=== PATIENT | male | born 1955 | race Caucasian/White ===

== ENCOUNTER 2018-08-17 08:00 | Outpatient (CLI) | payer MEDICARE, OTHER ==
[2018-08-17 18:43] LABS: BASOPHILS % (AUTO) 0.8 %; EOSINOPHILS # (AUTO) 0.1 10^3/uL (0.0-0.7); EOSINOPHILS % (AUTO) 1.2 %; HGB - HEMOGLOBIN 16.1 g/dL (14.0-18.0); LYMPHOCYTES # (AUTO) 1.5 10^3/uL (1.5-3.5); LYMPHOCYTES % (AUTO) 31.6 %; MEAN CORPUSCULAR HEMOGLOBIN 29.9 pg (27.0-31.0); MEAN CORPUSCULAR VOLUME 90.7 fL (80.0-94.0); MEAN PLATELET VOLUME 8.6 fL (7.4-11.4); MONOCYTES # (AUTO) 0.5 10^3/uL (0.0-1.0); MONOCYTES % (AUTO) 9.6 %; NEUTROPHILS # (AUTO) 2.7 10^3/uL (1.5-6.6); NEUTROPHILS % (AUTO) 56.8 %; PLT - PLATELET COUNT 274 10^3/uL (130-450); RED BLOOD COUNT 5.38 10^6/uL (4.70-6.10); RED CELL DISTRIBUTION WIDTH 13.3 % (12.0-15.0); WHITE BLOOD COUNT 4.7 x10^3/uL (4.8-10.8)
[2018-08-17 19:21] LABS: ALBUMIN 4.1 g/dL (3.2-5.5); ALBUMIN/GLOBULIN RATIO 1.5 (1.0-2.2); ALKALINE PHOSPHATASE 79 IU/L (42-121); ALT ALANINE AMINOTRANSFERASE 26 IU/L (10-60); AST ASPARTATE AMINOTRANSFERASE 23 IU/L (10-42); BILIRUBIN,TOTAL 2.4 mg/dL (0.2-1.0); BUN - BLOOD UREA NITROGEN 18 mg/dL (6-20); CALCIUM 8.9 mg/dL (8.5-10.3); CARBON DIOXIDE - CO2 30 mmol/L (21-32); CHLORIDE 101 mmol/L (101-111); CHOL/HDL RATIO 3.5 (<5.0); CHOLESTEROL 214 mg/dL; GFR - MDRD 75 (>89); GLUCOSE 99 mg/dL (70-100); HDL CHOLESTEROL 62 mg/dL; LDL CHOLESTEROL,CALCULATED 117 mg/dL; LDL/HDL RATIO 1.9 (<3.6); SODIUM 138 mmol/L (135-145); TOTAL PROTEIN 6.8 g/dL (6.7-8.2); VLDL CHOLESTEROL 35 mg/dL
== END 2018-08-17 23:59 | disposition home or self-care (01) ==
LOC: LAB.WCP 08:00
PROVIDERS: ATTEND Physician Assistant
DX: I10 Essential (primary) hypertension (principal); E78.5 Hyperlipidemia, unspecified; Z12.5 Encounter for screening for malignant neoplasm of prostate
CPT/HCPCS: 36415; 80053; 80061; 83721; 84153; 85025

== ENCOUNTER 2018-08-25 05:18 | Outpatient (CLI) | payer MEDICARE, OTHER ==
--- NOTE | 2018-08-25 06:29 | Ultrasound Report ---
Reason: LIVER LESION Procedure Date: 08/25/2018 Accession Number: [id number] / [id number] Procedure: US - Abdomen Limited CPT Code: FULL RESULT: EXAM: ABDOMEN ULTRASOUND LIMITED, RUQ EXAM DATE: 08/25/2018 05:50 AM. CLINICAL HISTORY: LIVER LESION. COMPARISON: None. TECHNIQUE: Real-time scanning was performed with static images obtained. FINDINGS: Liver: Increased echogenicity of the liver compatible with fatty infiltration. 17.3 cm. Main portal vein flow: Hepatopetal. In the left lobe of the liver there is a solid, hypoechoic lesion with vascularity measuring 1.3 x 1.2 x 1.4 cm. Gallbladder: Normal. No stones, wall thickening, or sonographic Hernández's sign. Biliary System: CBD measures 3 mm. No intrahepatic or extrahepatic ductal dilatation. Other: There is a nonobstructing calculus in the lower pole of the right kidney. Right kidney measures 10.6 cm. IMPRESSION: 1. Fatty liver. 2. Hypoechoic, solid, vascular lesion in the left lobe of the liver. Indeterminate. This may need follow-up imaging. 3. Nonobstructing calculus lower pole of the right kidney. RADIA
== END 2018-08-25 05:19 | disposition home or self-care (01) ==
LOC: DI 05:18
PROVIDERS: ATTEND Physician Assistant
DX: K76.9 Liver disease, unspecified (principal); K76.0 Fatty (change of) liver, not elsewhere classified; N20.0 Calculus of kidney
CPT/HCPCS: 76705

== ENCOUNTER 2018-09-06 07:10 | Outpatient (CLI) | payer MEDICARE, OTHER ==
[2018-09-06] MEDS ORDERED: IOVERSOL 320 100 ML VIAL IVP ONE ×2 (07:50→09:40)
--- NOTE | 2018-09-06 10:14 | CT Report ---
Reason: LIVER LESION Procedure Date: 09/06/2018 Accession Number: [id number] / [id number] Procedure: CT - ABDOMEN/PELVIS W/WO CPT Code: FULL RESULT: EXAM: CT ABDOMEN WITHOUT AND WITH CONTRAST EXAM DATE: 09/06/2018 08:00 AM. HISTORY: Liver lesion. COMPARISON: ABDOMEN LIMITED 08/25/2018 5:24 AM. TECHNIQUE: Routine helical CT imaging was performed through the abdomen before and after administration of IV contrast: 100 mL Optiray 320. Enteric contrast: No. Reconstruction: Coronal and sagittal. Multiple phases were obtained as per liver mass protocol. In accordance with CT protocol optimization, one or more of the following dose reduction techniques were utilized for this exam: automated exposure control, adjustment of mA and/or KV based on patient size, or use of iterative reconstructive technique. FINDINGS: Lung Bases: Partially calcified 1.2 x 1.5 centimeter left lower lobe nodule on image 13, benign calcification pattern. Liver: The approximately 1.7 x 1.2 cm subcapsular segment 2 lesion demonstrates predominantly peripheral heterogeneous opacification on the arterial phase, remains hyperdense on the portal venous phase with progressive filling and enhancement pattern following the vascular phase maintaining blood pool intensity on the 7 minute delay images. There is no washout or pseudocapsule. Additional hypodense segment 7/8 lesion, measuring 1.2 cm on image 17 demonstrates arterial enhancement, subtle washout and questionable pseudocapsule. Gallbladder/Bile Ducts: Unremarkable. Spleen: Mild splenomegaly. Pancreas: Normal. No masses or ductal obstruction. Adrenal Glands: Normal. Kidneys: Bilateral nonobstructing renal calculi, up to 6 mm on the right and up to 7 mm on the left. No obstruction. Peritoneal Cavity/Bowel: Sigmoid diverticulosis without diverticulitis. No free fluid, free air or adenopathy. No masses or acute inflammatory process. Vasculature: No aneurysms or other significant abnormality. Bones: No significant abnormality. Other: None. IMPRESSION: Indeterminate segment 2 hepatic lesion, imaging appearance is suggestive of a flash-filling hemangioma though distortion of the liver capsule is less typical. Newly identified 1.2 cm lesion at the border of segments 7/8, suspicious for malignancy. Recommendation: MRI abdomen liver mass protocol with and without intravenous contrast. KATHRIN The call report notification system was initiated by Dr. Braulio Corcoran at 10:08 AM on 09/06/2018. ADDENDUM: 09/06/18 10:17 The above call report findings were discussed with Addis Ferris by Dr. Braulio Corcoran at 10:17 AM on 09/06/2018.
== END 2018-09-06 07:11 | disposition home or self-care (01) ==
LOC: DI 07:10
PROVIDERS: ATTEND Physician Assistant
DX: K76.9 Liver disease, unspecified (principal)
CPT/HCPCS: 74178; Q9967

== ENCOUNTER 2018-09-07 15:20 | Outpatient (CLI) | payer OTHER, MEDICARE ==
[2018-09-07] MEDS ORDERED: GADOBUTROL 10 MMOL/10 ML VIAL ONE (15:53)
[2018-09-07] MEDS ORDERED: GADOBUTROL 10 MMOL/10 ML VIAL IVP ONE ×2 (17:05)
--- NOTE | 2018-09-07 17:39 | MRI Report ---
Reason: LIVER LESION Procedure Date: 09/07/2018 Accession Number: [id number] / [id number] Procedure: MRI - Abdomen W/WO CPT Code: FULL RESULT: EXAM: MR ABDOMEN WITH AND WITHOUT CONTRAST (MR LIVER) EXAM DATE: 09/07/2018 05:02 PM. CLINICAL HISTORY: Liver lesion seen on prior CT. COMPARISON: CT abdomen/pelvis without and with contrast 09/06/2018 8:10 AM. TECHNIQUE: Multiplanar breath-hold T1, T2, and DWI sequences obtained through the abdomen on an MR scanner. Images obtained before and after administration of 9 mL Gadavist intravenous contrast. Multiphase postcontrast images obtained of the liver and abdomen. FINDINGS: Lung Bases: No acute findings. Liver: Bright T2-hyperintense mass seen in the lateral segment left hepatic lobe which has progressive enhancement and persistent enhancement hyperdense to the adjacent liver on the delayed scan consistent with a hemangioma. This measures 1.3 x 1.7 cm. Gallbladder: Unremarkable. Bile Ducts: Unremarkable. Pancreas: Unremarkable. Spleen: Unremarkable. Adrenals: Unremarkable. Kidneys: Unremarkable. Bowel: Mild scattered colonic diverticula noted. No acute findings. IMPRESSION: 1. Liver hemangioma in the lateral segment left hepatic lobe. No more follow-up is required. 2. Mild scattered colonic diverticula noted. RADIA
== END 2018-09-07 15:21 | disposition home or self-care (01) ==
LOC: DI 15:20
PROVIDERS: ATTEND Nurse Practitioner
DX: D18.03 Hemangioma of intra-abdominal structures (principal); K57.30 Diverticulosis of large intestine without perforation or abscess without bleeding
CPT/HCPCS: 74183; A9585

== ENCOUNTER 2019-01-03 19:40 | Emergency (ER) | payer MEDICARE, OTHER ==
[2019-01-03 20:02] LABS: BILIRUBIN,URINE NEGATIVE (NEGATIVE); GLUCOSE, URINE (UA) NEGATIVE (NEGATIVE); KETONES,URINE (UA) NEGATIVE (NEGATIVE); LEUKOCYTE ESTERASE, URINE NEGATIVE (NEGATIVE); NITRITE,URINE NEGATIVE (NEGATIVE); OCCULT BLOOD,URINE TRACE-LYSE (NEGATIVE); PROTEIN,URINE NEGATIVE (NEGATIVE); UROBILINOGEN,URINE 1 (NORMAL) E.U./dL (NORMAL)
[2019-01-03 20:08] LABS: CLARITY,URINE CLEAR (CLEAR)
--- NOTE | 2019-01-03 21:03 | ED Physician Documentation ---
PD HPI MALE - Stated complaint Stated Complaint: MALE /L TESTICULAR PX - Chief complaint Chief Complaint: Abd Pain - History obtained from History obtained from: Patient - History of Present Illness Timing - onset: Today Timing - duration: Hours (12) Timing - details: Abrupt onset Pain level now: 3 Associated symptoms: Testiclar pain, Scrotal swelling. No: Dysuria, Urinary frequency, Hematuria, Discharge, Genital sore / lesion, Abdominal pain PD HPI MALE CONTRIB FACTORS: Sexually active. No: Exposed to STD (He is in a monogamous relationship) Similar symptoms before: No diagnosis Recently seen: Not recently seen - Additional information Additional information: This 63-year-old man who presents with his complains that he was out walking the dog this morning around 9 AM when he suddenly got this sharp pain in his left testicle and groin region. Left testicle began to get swollen and had a throbbing type pain that he noticed was better if he got up and moved around so he went to see his primary care provider this afternoon but they did not have any appointments. He explained everything to the nursing staff and then talk with the provider they called him later and told him to come to the emergency department. Pain was isolated to the left but now it is may be migrating to the right. He feels that his testicle is swollen to the size of a basketball. Pain is currently a 3 out of 10. He did put a jockstrap on earlier today and that seemed to relieve the pain a little bit he has not taken any medications for it. Denies any dysuria or hematuria. No nausea or vomiting. No back pain and no fever. Of note about a month ago the patient started lifting weights again and he has had some brief episodes of pain in the left testicle several times since then. Review of Systems Constitutional: denies: Fever GI: denies: Abdominal Pain, Nausea, Vomiting : reports: Testicular pain. denies: Dysuria, Frequency, Hematuria, Discharge Skin: denies: Rash Musculoskeletal: denies: Back pain PD PAST MEDICAL HISTORY - Present Medications Home Medications: Ambulatory Orders Medication Instructions Recorded Confirmed No Known Home Medications 01/03/19 01/03/19 - Allergies Allergies/Adverse Reactions: Allergies Allergy/AdvReac Type Severity Reaction Status Date / Time No Known Drug Allergies Allergy Verified 01/03/19 19:46 PD ED PE NORMAL - Vitals Vital signs reviewed: Yes - General General: Alert and oriented X 3, No acute distress, Well developed/nourished, Other (He is sitting on the exam table with his legs spread apart) - HEENT HEENT: Moist mucous membranes - Cardiac Cardiac: RRR - Respiratory Respiratory: No respiratory distress - Abdomen Abdomen: Normal bowel sounds, Soft, Non tender, Non distended - Male 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 No erythema to the scrotum. There is tenderness with palpation along the epididymis. No testicular mass. No hernia.) - Extremities Extremities: No edema - Neuro Neuro: Alert and oriented X 3, Other (No gross neurological deficits.) - Psych Psych: Normal mood, Normal affect Results - Vitals Vitals: Oxygen O2 Source Room air - Labs Labs: Laboratory Tests 01/03/19 19:50 Urine Color YELLOW Urine Clarity CLEAR Urine pH 6.0 Ur Specific [place] 1.015 Urine Protein NEGATIVE Urine Glucose (UA) NEGATIVE Urine Ketones NEGATIVE Urine Occult Blood TRACE-LYSE Urine Nitrite NEGATIVE Urine Bilirubin NEGATIVE Urine Urobilinogen 1 (NORMAL) Ur Leukocyte Esterase NEGATIVE Ur Microscopic Review NOT INDICATED Urine Culture Comments NOT INDICATED - Rads (name of study) ultrasound testicle Radiology: See rad report PD MEDICAL DECISION MAKING - ED course Complexity details: reviewed results, re-evaluated patient, d/w patient ED course: Patient initially declined any Toradol or ibuprofen. Ultrasound was obtained of the left testicle that showed no evidence of orchitis or mass. He does have bilateral varicoceles and in left epididymal cyst. After hearing the results the ultrasound patient did agree to take some ibuprofen. Think he probably has some epididymitis that could be related to the recent starting of weightlifting. Recommended that he wear white briefs for support or the jockstrap intake and anti-inflammatory. He is adamant that he has no risk of sexually transmitted disease in the testicle itself does not appear to be tender so I did not feel that antibiotics were warranted at this point in time. Departure - Departure Disposition: 01 Home, Self Care Clinical Impression: Epididymitis, Testicular pain, left Condition: Good Instructions: ED Epididymitis, ED Testicular Pain [facility] Follow-Up: Bre Alicia PA [Primary Care Provider] - Comments: Take ibuprofen 3 to 4 tablets every 8 hours with food [id number]. Wear tighty whiteys or the jockstrap for support. Avoid any strenuous lifting for at least the next 2 weeks. I would recommend recheck with your primary care provider and referral for your out logical evaluation particularly if the pain does not improve. Discharge Date/Time: 01/03/19 23:50
--- NOTE | 2019-01-03 22:52 | Ultrasound Report ---
Reason: left testicle pain Procedure Date: 01/03/2019 Accession Number: [id number] / [id number] Procedure: US - Testicle w/Doppler CPT Code: FULL RESULT: EXAM: SCROTAL ULTRASOUND EXAM DATE: 01/03/2019 10:35 PM. CLINICAL HISTORY: Left testicle pain. COMPARISON: None. TECHNIQUE: Real-time scanning was performed with static images obtained. Color-flow images were utilized. FINDINGS: Right: Testis: 4.2 x 3.1 x 2.3 cm. Normal size and echotexture. No mass, calcification, or abnormal blood flow. Epididymis: 1.3 x 1.3 x 0.6 cm. Incidental cyst, measuring 7 mm. Normal flow. Hydrocele: Small Varicocele: Yes Left: Testis: 3.8 x 2.5 x 2.0 cm. Normal size and echotexture. No mass, calcification, or abnormal blood flow. Epididymis: 1.2 x 1.2 x 0.8 cm. Incidental cysts, measuring up to 1.1 cm. Normal flow. Hydrocele: None. Varicocele: Yes IMPRESSION: Bilateral varicoceles. Small right hydrocele. Incidental epididymal cysts. No evidence of testicular torsion or orchitis. RADIA
[2019-01-03] MEDS ORDERED: IBUPROFEN 600 MG TABLET PO STA (23:28)
[2019-01-03 23:35] VITALS: BP 169/109
== END 2019-01-03 23:50 | disposition home or self-care (01) ==
LOC: ED 19:40
DX: N45.1 Epididymitis (principal); N50.3 Cyst of epididymis
CPT/HCPCS: 76870; 81003; 93975; 99284; A9270; 81001; 87086

== ENCOUNTER 2019-01-15 19:30 | Outpatient (CLI) | payer MEDICARE, OTHER ==
--- NOTE | 2019-01-16 01:36 | Ultrasound Report ---
Reason: GROIN PAIN, LEFT Procedure Date: 01/15/2019 Accession Number: [id number] / [id number] Procedure: US - Pelvic Limited or F/U CPT Code: FULL RESULT: EXAM: LIMITED PELVIC ULTRASOUND EXAM DATE: 01/15/2019 08:40 PM CLINICAL HISTORY: Groin pain, left. COMPARISON: ABDOMEN W/WO 09/07/2018 4:12 PM, ABDOMEN/PELVIS W/WO 09/06/2018 8:10 AM. TECHNIQUE: Real-time sonographic imaging of the inguinal canals and vascular structures, including color-flow, was performed by the special needs tutor. Multiple business services sales representative static images were saved for review. FINDINGS: Hernia: There is a small reducible fat-containing inguinal hernia. No herniated bowel loops seen. Soft Tissues: Normal. No fluid collections or adenopathy. Other: None. IMPRESSION: Small fat-containing left groin hernia. No herniated bowel. No mass or lymphadenopathy. RADIA
== END 2019-01-15 19:31 | disposition home or self-care (01) ==
LOC: DI 19:30
PROVIDERS: ATTEND Physician Assistant
DX: K40.90 Unilateral inguinal hernia, without obstruction or gangrene, not specified as recurrent (principal)
CPT/HCPCS: 76857

== ENCOUNTER 2019-07-23 07:00 | Outpatient (CLI) | payer MEDICARE, OTHER ==
[2019-07-23 18:59] LABS: CREATININE 1.1 mg/dL (0.6-1.2)
[2019-07-23 19:04] LABS: GLUCOSE, URINE (UA) NEGATIVE (NEGATIVE); KETONES,URINE (UA) NEGATIVE (NEGATIVE); LEUKOCYTE ESTERASE, URINE NEGATIVE (NEGATIVE); NITRITE,URINE POSITIVE (NEGATIVE); OCCULT BLOOD,URINE LARGE (NEGATIVE); PH,URINE 6.5 PH (5.0-7.5); PROTEIN,URINE 30 mg/dL (NEGATIVE); UROBILINOGEN,URINE 0.2 (NORMAL) E.U./dL (NORMAL)
[2019-07-23 19:10] LABS: BILIRUBIN,URINE NEGATIVE (NEGATIVE); CLARITY,URINE TURBID (CLEAR); ICTOTEST,URINE NEGATIVE
[2019-07-23 19:30] LABS: BACTERIA,URINE None Seen /HPF (None Seen); RBC,URINE TNTC /HPF (0-5); SQUAMOUS EPITHELIAL CELL,UR NONE SEEN (<= Few)
== END 2019-07-23 23:59 | disposition home or self-care (01) ==
LOC: LAB.WCP 07:00
PROVIDERS: ATTEND Physician Assistant
DX: R31.0 Gross hematuria (principal)
CPT/HCPCS: 36415; 80048; 81001; 87086

== ENCOUNTER 2019-12-20 13:33 | Outpatient (CLI) | payer MEDICARE, OTHER | END 2019-12-20 13:34 | disposition home or self-care (01) | LOC: LAB 13:33 | PROVIDERS: ATTEND Surgery | DX: Z01.812 Encounter for preprocedural laboratory examination (principal); K40.20 Bilateral inguinal hernia, without obstruction or gangrene, not specified as recurrent; Z11.59 Encounter for screening for other viral diseases ==

== ENCOUNTER 2019-12-24 13:08 | Day surgery (SDC) | payer MEDICARE, OTHER ==
[~2019-12-24 13:08] MED LIST: CEFAZOLIN SODIUM IN 0.9 % NACL 2 GM/100 ML BAG IV ONE
[2019-12-24] MEDS ORDERED: LACTATED RINGERS 1,000 ML IV ONE ×2 (13:10→17:06)
--- NOTE | 2019-12-24 13:59 | ANESTHESIA ---
Pre-Anesthesia VS, & Labs - Diagnosis Bilateral inguinal hernias - Procedure laparoscopic bilateral hernia repairs with mesh Vital Signs: Temp Pulse Resp BP Pulse Ox 36.3 C L 84 16 165/115 H 96 12/24/19 13:27 12/24/19 13:27 12/24/19 13:27 12/24/19 13:27 12/24/19 13:27 Height 5 ft 9 in Weight (kg) 93 kg Body Mass Index 28.8 - NPO >8 hours Home Medications and Allergies Loratadine [Claritin] 10 mg PO DAILY 12/20/19 Allergies/Adverse Reactions: Allergies Allergy/AdvReac Type Severity Reaction Status Date / Time No Known Drug Allergies Allergy Verified 01/03/19 19:46 Anes History & Medical History - Anesthetic History Anesthesia Complications: reports: No previous complications - Medical History Cardiovascular: reports: Hypertension, High cholesterol Pulmonary: reports: Sleep apnea, CPAP use Gastrointestinal: reports: Colon polyps Urinary: reports: Kidney stones, Other Neuro: reports: None Musculoskeletal: reports: Osteoarthritis Endocrine/Autoimmune: reports: None Blood Disorders: reports: None Skin: reports: None Smoking Status: Former smoker (quit at age 26) Psychosocial: reports: No issues indicated - Surgical History General: Colonoscopy Urologic: Ureterolithotomy (stones) Exam General: Alert, Oriented x3, Cooperative, No acute distress Mouth Openin Fingerbreadth Neck Mobility: Normal Mallampati classification: III Thyromental Distance: greater than 6 cm Respiratory: Lungs clear, Normal breath sounds, No respiratory distress, No accessory muscle use Cardiovascular: Regular rate, Normal S1, Normal S2, No murmurs Mental/Cognitive Status: Alert/Oriented X3, Normal for patient Plan Anesthesia Type: General Consent for Procedure(s) Verified and Reviewed: Yes Code Status: Attempt Resuscitation ASA classification: 2-Mild systemic disease Is this case an emergency?: No
[2019-12-24] MEDS ORDERED: BUPIVACAINE 0.25% PF 30 ML VIAL ONE ×2 (15:17→17:31)
[2019-12-24] MEDS ORDERED: ONDANSETRON 4 MG/2 ML VIAL IVP ONE (15:24)
[2019-12-24] MEDS ORDERED: GLYCOPYRROLATE 1 MG/5 ML VIAL IVP ONE (15:24)
[2019-12-24] MEDS ORDERED: MIDAZOLAM 2 MG/2 ML VIAL IVP ONE (15:24)
[2019-12-24] MEDS ORDERED: LIDOCAINE-MPF 2% 5 ML VIAL IM ONE (15:24)
[2019-12-24] MEDS ORDERED: fentaNYL 100 MCG/2 ML VIAL IVP ONE (15:24)
[2019-12-24] MEDS ORDERED: ePHEDrine 50 MG/ML VIAL IVP ONE (15:24)
[2019-12-24] MEDS ORDERED: NEOSTIGMINE 1 MG/1 ML 10 ML MDV IVP ONE (15:24)
[2019-12-24] MEDS ORDERED: PROPOFOL 200 MG/20 ML VIAL IVP ONE (15:24)
[2019-12-24] MEDS ORDERED: DEXAMETHASONE 4 MG/ML VIAL IVP ONE (15:24)
[2019-12-24] MEDS ORDERED: ROCURONIUM 50 MG/5 ML VIAL IVP ONE (15:24)
[2019-12-24] MEDS ORDERED: PHENYLEPHRINE 10 MG/ML VIAL IV ONE (15:24)
[2019-12-24] MEDS ORDERED: BUPIVACAINE 0.25% PF 30 ML VIAL SUBQ ONE ×2 (16:00→17:30)
[2019-12-24] MEDS ORDERED: ONDANSETRON 4 MG/2 ML VIAL IVP PRN (17:57)
[2019-12-24] MEDS ORDERED: oxyCODONE 5 MG TABLET PO PRN (17:57)
[2019-12-24] MEDS: fentaNYL 100 MCG/2 ML VIAL ONE ×2 (18:03→18:18)
[2019-12-24 19:44] VITALS: BP 136/88
--- NOTE | 2019-12-25 18:58 | OPERATIVE REPORT ---
DATE OF SERVICE: 12/24/2019 Physician: Mik Pride MD PREOPERATIVE DIAGNOSIS: Bilateral inguinal hernia. POSTOPERATIVE DIAGNOSIS: Bilateral inguinal hernia, large indirect, incarcerated on the right. PROCEDURE PERFORMED: Laparoscopic preperitoneal bilateral inguinal hernia repair with mesh. SURGEON: Mik Pride MD BEVELING MACHINE OPERATOR: None. TYPE OF ANESTHESIA 1. General endotracheal anesthesia. 2. Local anesthesia with Marcaine. COMPLICATIONS: None. SPECIMEN: Incarcerated omentum removed. However, not sent for pathology. ESTIMATED BLOOD LOSS: Less than 5 mL DRAINS: None. PROSTHETIC: Medium Bard preformed mesh placed bilateral. COMPLICATIONS: None. FINDINGS: As above. Large bilateral indirect inguinal hernias, incarcerated on the right hand side. INDICATIONS FOR PROCEDURE: Patient is a 64-year-old gentleman with progressing bilateral inguinal hernias, both in pain as well as size. Laparoscopic repair was offered and recommended. Risks discussed, alternatives discussed. All questions answered and consent obtained. PROCEDURE: Patient was properly identified, brought to the operating room and placed in supine position. General endotracheal anesthesia was induced. Sequential compression devices and Mtz catheter were placed. He was prepped and draped in a sterile fashion, given preoperative antibiotics. Local anesthetic was given throughout the procedure. An infraumbilical incision was made. Dissection proceeded down to the fascia. The fascia was opened slightly right lateral of midline. The preperitoneal space was carefully developed with digital blunt dissection. A Marla trocar was placed and secured with 3 interrupted 0 Vicryl sutures. CO2 was insufflated to a pressure of 12. The preperitoneal space was further developed with a 30-degree scope. In midline, two 5 mm trocars were placed between the pubis and the umbilicus. The right hand side was first addressed. A large space was created on the right hand side. The inferior epigastrics were kept along the abdominal wall. The pubic tubercle and Benson's ligament was defined. He had a very large indirect inguinal hernia. Hernia sac was slowly mobilized off from the cord structures and then tied with an 0 PDS Endoloop. The left side was then addressed. Findings were very similar. However, on the left, he had incarcerated omentum. The hernia sac was opened close to the abdominal wall. A portion of incarcerated omentum was removed. Hemostasis was assured. The hernia sac was then closed with an additional 0 PDS. Laterally, there was a very small, perhaps 5 mm hole in the peritoneum, which was closed with an 0 PDS Endoloop. A pocket was created large enough for another medium preformed mesh. A medium preformed mesh was then placed bilateral and secured at the pubic tubercle, Benson's ligament area and under the rectus musculature. A CapSure device was used. The mesh lay in good position. CO2 was evacuated and trocars were removed under direct vision. The small portion of the incarcerated omentum was brought out through the umbilical site at the end of the procedure. Fascia at the infraumbilical site was closed with a total of 5 interrupted 0 Vicryl sutures. Skin was closed with buried interrupted or running 4-0 Monocryl. Dressings were applied. He tolerated the procedure very well. TD: 12/25/2019 17:10 NILDA
== END 2019-12-24 13:09 | disposition home or self-care (01) ==
LOC: SDS 13:08
PROVIDERS: ATTEND Surgery
PROC: 0YUA4JZ Supplement Bilateral Inguinal Region with Synthetic Substitute, Percutaneous Endoscopic Approach (ICD-10-PCS; principal; 2019-12-24 14:15)
DX: K40.10 Bilateral inguinal hernia, with gangrene, not specified as recurrent (principal); Z87.891 Personal history of nicotine dependence
CPT/HCPCS: 49650; C1781; J0690; J7120

== ENCOUNTER 2021-02-18 09:57 | Outpatient (CLI) | payer MEDICARE, OTHER ==
[2021-02-18 17:51] LABS: BASOPHILS % (AUTO) 0.8 %; EOSINOPHILS # (AUTO) 0.1 10^3/uL (0.0-0.7); EOSINOPHILS % (AUTO) 1.7 %; HCT - HEMATOCRIT 51.9 % (42.0-52.0); HGB - HEMOGLOBIN 17.2 g/dL (14.0-18.0); LYMPHOCYTES # (AUTO) 1.8 10^3/uL (1.5-3.5); LYMPHOCYTES % (AUTO) 33.1 %; MEAN CORPUSCULAR HEMOGLOBIN 30.6 pg (27.0-31.0); MEAN CORPUSCULAR HGB CONC 33.1 g/dL (32.0-36.0); MEAN CORPUSCULAR VOLUME 92.3 fL (80.0-94.0); MEAN PLATELET VOLUME 10.3 fL (7.4-11.4); MONOCYTES # (AUTO) 0.5 10^3/uL (0.0-1.0); NEUTROPHILS # (AUTO) 2.9 10^3/uL (1.5-6.6); PLT - PLATELET COUNT 309 10^3/uL (130-450); RED BLOOD COUNT 5.62 10^6/uL (4.70-6.10); RED CELL DISTRIBUTION WIDTH 12.6 % (12.0-15.0); WHITE BLOOD COUNT 5.3 x10^3/uL (4.8-10.8)
[2021-02-18 18:11] LABS: ALBUMIN 4.2 g/dL (3.2-5.5); ALBUMIN/GLOBULIN RATIO 1.4 (1.0-2.2); ALKALINE PHOSPHATASE 66 IU/L (42-121); ALT ALANINE AMINOTRANSFERASE 23 IU/L (10-60); AST ASPARTATE AMINOTRANSFERASE 18 IU/L (10-42); BILIRUBIN,TOTAL 1.9 mg/dL (0.2-1.0); BUN - BLOOD UREA NITROGEN 16 mg/dL (6-20); CALCIUM 8.9 mg/dL (8.5-10.3); CARBON DIOXIDE - CO2 29 mmol/L (21-32); CHLORIDE 103 mmol/L (101-111); CHOL/HDL RATIO 5.1 (<5.0); CHOLESTEROL 277 mg/dL; CREATININE 1.1 mg/dL (0.6-1.2); GFR - MDRD 67 (>89); GLUCOSE 84 mg/dL (70-100); HDL CHOLESTEROL 54 mg/dL; LDL CHOLESTEROL,CALCULATED 196 mg/dL; LDL/HDL RATIO 3.6 (<3.6); POTASSIUM 4.3 mmol/L (3.5-5.0); SODIUM 139 mmol/L (135-145); TOTAL PROTEIN 7.1 g/dL (6.7-8.2); TRIGLYCERIDES 135 mg/dL; VLDL CHOLESTEROL 27 mg/dL
== END 2021-02-18 23:59 | disposition home or self-care (01) ==
LOC: LAB.WCP 09:57
PROVIDERS: ATTEND Physician Assistant Medical
DX: E78.5 Hyperlipidemia, unspecified (principal); Z12.5 Encounter for screening for malignant neoplasm of prostate; R03.0 Elevated blood-pressure reading, without diagnosis of hypertension
CPT/HCPCS: 36415; 80053; 80061; 85025; G0103; 83721; 84153

== ENCOUNTER 2021-07-05 07:59 | Outpatient (CLI) | payer MEDICARE, OTHER ==
[2021-07-05 12:41] LABS: ALBUMIN 4.1 g/dL (3.2-5.5); ALBUMIN/GLOBULIN RATIO 1.4 (1.0-2.2); ALKALINE PHOSPHATASE 62 IU/L (42-121); ALT ALANINE AMINOTRANSFERASE 31 IU/L (10-60); AST ASPARTATE AMINOTRANSFERASE 23 IU/L (10-42); BILIRUBIN,TOTAL 2.3 mg/dL (0.2-1.0); BUN - BLOOD UREA NITROGEN 21 mg/dL (6-20); CARBON DIOXIDE - CO2 30 mmol/L (21-32); CHLORIDE 100 mmol/L (101-111); CHOL/HDL RATIO 3.3 (<5.0); CHOLESTEROL 173 mg/dL; CREATININE 1.2 mg/dL (0.6-1.2); GFR - MDRD 60 (>89); GLUCOSE 97 mg/dL (70-100); HDL CHOLESTEROL 53 mg/dL; LDL CHOLESTEROL,CALCULATED 102 mg/dL; LDL/HDL RATIO 1.9 (<3.6); POTASSIUM 3.7 mmol/L (3.5-5.0); SODIUM 138 mmol/L (135-145); TOTAL PROTEIN 7.1 g/dL (6.7-8.2); TRIGLYCERIDES 88 mg/dL; VLDL CHOLESTEROL 18 mg/dL
== END 2021-07-05 08:00 | disposition home or self-care (01) ==
LOC: LAB.N 07:59
PROVIDERS: ATTEND Physician Assistant Medical
DX: E78.5 Hyperlipidemia, unspecified (principal)
CPT/HCPCS: 36415; 80053; 80061; 83721

== ENCOUNTER 2021-12-28 07:52 | Outpatient (CLI) | payer MEDICARE, OTHER ==
[2021-12-28 13:10] LABS: ALBUMIN 4.3 g/dL (3.2-5.5); ALBUMIN/GLOBULIN RATIO 1.7 (1.0-2.2); ALKALINE PHOSPHATASE 64 IU/L (42-121); ALT ALANINE AMINOTRANSFERASE 30 IU/L (10-60); AST ASPARTATE AMINOTRANSFERASE 22 IU/L (10-42); BILIRUBIN,TOTAL 1.6 mg/dL (0.2-1.0); BUN - BLOOD UREA NITROGEN 15 mg/dL (6-20); CALCIUM 9.2 mg/dL (8.5-10.3); CARBON DIOXIDE - CO2 30 mmol/L (21-32); CHLORIDE 103 mmol/L (101-111); CHOL/HDL RATIO 3.7 (<5.0); CHOLESTEROL 203 mg/dL; CREATININE 1.3 mg/dL (0.6-1.2); GFR - MDRD 55 (>89); GLUCOSE 98 mg/dL (70-100); HDL CHOLESTEROL 55 mg/dL; LDL CHOLESTEROL,CALCULATED 123 mg/dL; LDL/HDL RATIO 2.2 (<3.6); POTASSIUM 3.9 mmol/L (3.5-5.0); SODIUM 141 mmol/L (135-145); TOTAL PROTEIN 6.8 g/dL (6.7-8.2); TRIGLYCERIDES 123 mg/dL; VLDL CHOLESTEROL 25 mg/dL
== END 2021-12-28 07:53 | disposition home or self-care (01) ==
LOC: LAB.N 07:52
PROVIDERS: ATTEND Physician Assistant Medical
DX: E78.5 Hyperlipidemia, unspecified (principal)
CPT/HCPCS: 36415; 80053; 80061; 83721

== ENCOUNTER 2022-01-26 07:54 | Outpatient (CLI) | payer MEDICARE, OTHER ==
[2022-01-26 12:07] LABS: CREATININE 1.1 mg/dL (0.6-1.2); POTASSIUM 3.8 mmol/L (3.5-5.0)
== END 2022-01-26 07:55 | disposition home or self-care (01) ==
LOC: LAB.N 07:54
PROVIDERS: ATTEND Physician Assistant Medical
DX: I10 Essential (primary) hypertension (principal)
CPT/HCPCS: 36415; 80048

== ENCOUNTER 2022-02-21 07:35 | Outpatient (CLI) | payer MEDICARE, OTHER | END 2022-02-21 07:36 | disposition home or self-care (01) | LOC: LAB.N 07:35 | PROVIDERS: ATTEND Physician Assistant Medical | DX: Z12.5 Encounter for screening for malignant neoplasm of prostate (principal) | CPT/HCPCS: 36415; G0103; 84153 ==